=== PATIENT | male | born 1965 | race Caucasian/White ===

== ENCOUNTER 2019-06-28 11:15 | Day surgery (SDC) | payer BC, SELFPAY ==
--- NOTE | 2019-06-28 11:42 | EKG12_ITS ---
Test Reason : PRE OP Blood Pressure : / mmHG Vent. Rate : 067 BPM Atrial Rate : 067 BPM P-R Int : 178 ms QRS Dur : 084 ms QT Int : 408 ms P-R-T Axes : 041 065 050 degrees QTc Int : 431 ms Normal sinus rhythm Normal ECG No previous ECGs available Confirmed by VENICE BELTRÁN, NEVA ([id number]), editor index CLEMENT LYONS ([id number]) on 07/02/2019 12:35:05 PM Referred By: Dong Fong Confirmed By:NEVA MILLARD MD
[2019-06-28 11:56] VITALS: BP 117/81; PULSE 66; RESP 16; TEMP 36.8; O2SAT 95; BMI 34.4
[2019-06-28 12:05] LABS: Hematocrit 43.7 % (40-54); Hemoglobin 14.3 g/dL (13.0-16.5); Mean Corp Hgb Conc 32.7 g/dL (32-36); Mean Corpuscular Hgb 28.6 pg (27.0-32.0); Mean Corpuscular Volume 87.4 fL (80-94); Mean Platelet Vol. 10.1 fl (6.2-12.0); Platelet Count 233 K/mm3 (150-450); RBC Distribution Width CV 13.2 % (11.6-14.6); RBC Distribution Width SD 41.8 fl (35.1-43.9)
[2019-06-28] MEDS: Lactated Ringers 1,000 ML 100 ML IV (12:13)
--- NOTE | 2019-06-28 12:55 | ETH_PTH ---
PATIENT: DELANEY RAMOS LOC: [facility] [place] U#:[id number] AGE/SX: 54/M ROOM: RE06/28/[address]: Dr. Dong Fong MD : 1965 BED: DIS: 06/28/2019 SPEC #: [id number] RECD: 06/28/19 16:06 STATUS: KARLI TIMA #: [id number] POLO: 06/28/19 12:[address]: Dong Fong DEPT: SURGICAL PATHOLOGY RECD BY: Lalito Martinez ENTERED: 07/01/19 11:49 SP TYPE: ETH TISS OTHR DR: Dr. Bjorn Chamorro MD Tissues: Ethmoid sinus, NOS Procedures: Decalcification bone/plaque Surgery Specimen Level IV HEADER OPERATION: Septoplasty, submucous resection inferior turbinate PRE-OP DIAGNOSIS: Deviated nasal septum; hypertrophy of nasal turbinates; obstructive sleep apnea TISSUE SUBMITTED: Nasal septum contents MICROSCOPIC DIAGNOSIS Nasal septum and submucosal resection inferior turbinate: Fragments of respiratory mucosa with chronic inflammation and fragments of squamous epithelium. Numerous organisms consistent with actinomyces colonization. Fragments of bone and cartilage, clinically deviated nasal septum. MEHDI:arden 07/04/19 MICROSCOPIC DESCRIPTION Slides are reviewed. GROSS DESCRIPTION Received in fixative is one container labeled with the patient's name and designated nasal septum contents. The specimen consists of multiple fragments of bone and cartilage that in aggregate measure 3 x 2.5 x 0.3 cm. Also present in the container are multiple fragments of mucoid tissue mixed with fragments of hemorrhagic tissue that in aggregate measure 3 x 2.5 x 0.3 cm. The entire specimen is submitted as follows: 1 - bone and cartilage after decalcification, 2 - mucoid tissue. / MEHDI:arden 07/01/19 TC:3 CPT: 70087, 69838
[2019-06-28] MEDS: Lidocaine 4% 50 ML Bottle OPERA.SITE (14:36)
[2019-06-28] MEDS: Bacitracin 500 UNITS/GM PACKET (14:37)
--- NOTE | 2019-06-28 15:09 | PCM.OPRPT ---
Problem List (1) Deviated nasal septum Status: Chronic (2) Hypertrophy of nasal turbinates Status: Chronic (3) Obstructive sleep apnea (adult) (pediatric) Status: Chronic Report of Operation Date of Procedure: 06/28/19 Pre-Operative Diagnosis: Deviated nasal septum, inferior turbinate hypertrophy, sleep apnea Post-Operative Diagnosis: Same Surgery/Procedure Performed:: Septoplasty, bilateral submucous resection of inferior nasal turbinates Description of Surgical Findings:: Hany is a 54-year-old male with complains of chronic nasal obstruction complicating sleep apnea and failing to improve despite medical therapy. Examination showed market deviation of nasal septum to the left and hypertrophy of the inferior turbinates more so on the right than the left. The above procedures offered hopes of alleviation of his nasal congestion complaints and he is eager to proceed. The risks, alternatives, potential complications, and benefits were discussed at length and any questions answered to the patient and/or caregiver's satisfaction. Witnessed informed consent was obtained in the office, and the patient and/or caregiver was agreeable to proceed. Procedure went as follows: The patient was identified in the preoperative holding and brought to the operating room, was placed under general anesthesia and intubated. When appropriate anesthesia was obtained, pledgets soaked in a 50-50 mixture of oxymetazoline and 4% topical lidocaine were placed to decongest the nasal mucosa. The nasal septum was then injected beginning on the left side with 1% lidocaine with 100,000 epinephrine for a total of 6 mL. The pledgets were then removed and the left nasal cavity examined. There was noted to be significant nasal septal deviation to the left. Using a 15 blade scalpel, a hemitransfixion incision was then made on the left side and using the Vanesa elevator a subperichondrial/periosteal flap was elevated. The septum was then transected at the bony cartilaginous junction and a similar flap raised on the contralateral side. Using a Kimberly forceps, the septum was then sharply transected superiorly and the deviated portions removed with a Mayito forceps. Any inferior bony spur was then removed with a chisel allowing for midline placement of the nasal septum. The hemitransfixion incision was then closed with interrupted 4-0 chromic gut suture followed by a 4-0 plain quilting suture to reapproximate the mucosal flaps. Attention was then turned to the inferior nasal turbinates. Beginning on the left side, the anterior aspect of the inferior turbinate was then injected with 1% lidocaine with 100,000 epinephrine for a total of 2.5 mL bilaterally. Again beginning on the left side a 15 blade scalpel was used to create a stab incision in the anterior aspect of the turbinate. A caudal elevator was then used to elevate a submucosal plane. Using the microdebrider, the anterior bony and intervening submucosal tissue was then removed resulting in reduction of the inferior turbinate. Similar procedure was then completed on the contralateral side. Hahn splints were then applied after coating with bacitracin ointment and secured to the columella with a single 3-0 Prolene suture. The patient was then returned to anesthesia, was revived and extubated having tolerated the procedure well without complications. Type of Anesthesia:: General Anesthesiologist: Dharmesh Coronado Special Medications: none Specimen's removed: septum and nasal turbinate contents Drains: none Estimated Blood Loss (mL): 50 mL Fluids Replaced: 900 mL Grafts/Implants Used: Hahn splints - Complications none - Admit VTE Documentation VTE Present on Admission: No VTE Mechan Device Prophylaxis: SCD's VTE Pharm Prophylaxis ordered?: No
--- NOTE | 2019-06-28 15:14 | DCINST_ITS ---
- Discharge Diagnoses Current Active Problems: Current Active and Chronic Problems Deviated nasal septum (Chronic) Hypertrophy of nasal turbinates (Chronic) Obstructive sleep apnea (adult) (pediatric) (Chronic) You will use the following diet at home:: No restrictions Discharge Activity: Return to Normal Activity Call your doctor if your incision/area has: Sudden Increased Bleeding, Foul Smelling Discharge, Swelling at the incision site Call your doctor if you observe: Fever of 101 or Higher, Uncontrolled pain Allergies/Adverse Reactions: Allergies No Known Allergies Allergy (Verified 06/28/19 11:54) Medications to take at Discharge Atorvastatin Calcium [Lipitor] 20 mg PO QHS 06/21/19 Citalopram [Celexa] 20 mg PO QHS 06/21/19 Fenofibrate 54 mg PO DAILY 06/21/19 Primary Care Physician: Bjorn Chamorro MD [Primary Care Provider] - Test Results: Test results from this visit will be discussed in further detail at your follow- up appointment, if applicable. Please Follow Up With: Dong Fong MD When: 5 days
[2019-06-28 15:16] VITALS: BP 117/81; BP 127/81; PULSE 73; RESP 16; TEMP 36.9; O2SAT 89
[2019-06-28 15:30] VITALS: BP 117/81; BP 120/72; PULSE 69; RESP 16; O2SAT 93
[2019-06-28 15:46] VITALS: BP 114/83; BP 117/81; PULSE 63; RESP 16; TEMP 37.1; O2SAT 97
[2019-06-28 16:07] VITALS: BP 115/82; BP 117/81; PULSE 63; RESP 16; O2SAT 97
== END 2019-06-28 16:11 | disposition home or self-care (01) ==
LOC: SDC 11:32 → AC 11:50
PROVIDERS: Anesthesiology; Referring Provider Otolaryngology; Visit Provider Otolaryngology
PROC: (CPT 30520; principal; 2019-06-28 12:40)
DX: J34.2 Deviated nasal septum (principal); J34.3 Hypertrophy of nasal turbinates; G47.33 Obstructive sleep apnea (adult) (pediatric); E78.00 Pure hypercholesterolemia, unspecified; F41.9 Anxiety disorder, unspecified; Z79.899 Other long term (current) drug therapy; F17.200 Nicotine dependence, unspecified, uncomplicated
CPT/HCPCS: 30140; 30520; 36415; 85027; 88305; 88311; 93005; J7120; J2405